=== PATIENT | male | born 1980 ===

== ENCOUNTER 2021-07-04 06:00 | Outpatient (RCR) | payer MEDICARE, MEDICAID, SELFPAY | END 2021-07-28 23:59 | disposition home or self-care (01) | LOC: SST 06:00 | PROVIDERS: Absent Provider Internal Medicine Sleep Medicine; Visit Provider Internal Medicine Sleep Medicine | DX: G80.9 Cerebral palsy, unspecified (principal); R41.841 Cognitive communication deficit | CPT/HCPCS: 92607; 92608 ==